=== PATIENT | female | born 1950 | race Caucasian/White ===

== ENCOUNTER 2016-10-26 16:51 | Inpatient (IN) ==
[2016-10-26] MEDS ORDERED: NITROGLYCERIN 2% OINT 1 INCH/GM PACK TOP STA (18:05)
[2016-10-26] MEDS ORDERED: ALBUTEROL/IPRATROPIUM 3 ML NEB RESP TX STA (18:05)
[2016-10-26] MEDS ORDERED: ONDANSETRON 4 MG/2 ML VIAL IV STA (18:05)
[2016-10-26] MEDS ORDERED: methylPREDNISolone SOD SUC 125 MG/2 ML VIAL IV STA (18:05)
[2016-10-26] MEDS ORDERED: MORPHINE 2 MG/1 ML SYRINGE IV STA (18:05)
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
[2016-10-26 18:41] LABS: ABG Base Excess -0.6 MMOL/L (-2.5-2.5); ABG HCO3 23.9 MMOL/L (20-26); ABG Oxygen Saturation 97.6 % (95-100); ABG PH 7.397 (7.35-7.45); ABG TCO2 20.4 MMOL/L (23-27)
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
[2016-10-26 19:05] LABS: Basophils % 0.5 % (0.0-0.8); Eosinophils # 0.2 10*3/uL (0.0-0.87); Eosinophils % 2.8 % (0.00-10.9); Hematocrit 43.4 VOL% (35.7-47.0); Hemoglobin 14.9 GM/DL (12.0-16.0); Immature Granulocytes % 0.8 %; Immature Granulocytes Absolute 0.07 #; Lymphocytes % 23.5 % (21.3-54.2); Mean Corpuscular HGB Conc 34.3 GM/DL (32-36); Mean Corpuscular Hemoglobin 30 PG (27-34); Mean Corpuscular Volume 88.2 FL (87-102); Mean Platelet Volume 10.3 FL (9.6-12.0); Monocytes # 0.6 10*3/uL (0.11-0.8); Monocytes % 7.1 % (1.7-12.7); Neutrophils # 5.4 10*3/uL (1.4-7.4); Neutrophils % 65.3 % (38.7-73.9); Platelet Count 162 T/CUMM (130-400); Red Blood Count 4.92 MC/CUMM (3.8-5.5); Red Cell Distribution Width 13.2 % (9.3-17.3); White Blood Count 8.3 T/CUMM (4-12)
--- NOTE | 2016-10-26 19:05 | EKG Report ---
Stationary ECG Study [facility] ER Test Date: 10/26/2016 7:03:56 PM Pat Name: VARSHA CARLTON Department: Room: Gender: F Technology Lab Teacher: : 1950 Requested by: Sreekanth Fajardo Order Number: [id number] Reading MD: SINA FELIX Intervals [place] Rate: 92 P: 20 OH: 157 QRS: -16 QRSD: 92 T: 68 QT: 372 QTc: 422 Interpretive Statements SINUS RHYTHM NONSPECIFIC T-WAVE ABNORMALITY Electronically Signed On 10-30-16 16:13:29 CDT by SINA FELIX [email or web address]
--- NOTE | 2016-10-26 19:12 | XRay Report ---
Referring Physician: Sreekanth Mcfarland Exam: XR chest 1V portable Date: October 26, 2016 at 6:21 PM Reason: Shortness of breath Comparison: Chest 1 view October 26, 2016 at 10:53 AM Findings: The cardiac silhouette is upper normal in size, and there may be venous congestion. No focal consolidation, pneumothorax or pleural effusion is identified. No acute osseous process is seen. Impression: 1. Borderline cardiomegaly and possible venous congestion. 2. No acute pulmonary process is identified. PROCEDURE INTERPRETED AT [facility] DEPARTMENT OF RADIOLOGY Final Report Signed by: Dr. Yoselyn Philippe
[2016-10-26 19:16] LABS: INR 1.1; PT Patient Result 11.3 SECS
[2016-10-26 19:33] LABS: Albumin 3.6 G/DL (3.4-5.0); Apearance,Urine CLEAR (Clear); Bilirubin,Total 0.7 MG/DL (0.2-1.0); Bilirubin,Urine Negative (Negative); Blood, Urine Negative (Negative); Calcium 9.4 MG/DL (8.5-10.1); Glucose,Urine (UA) 50 mg/dL (Negative); Ketones,Urine 5 mg/dL (Negative); Mucus,Urine Occasional /LPF (Occasional); Nitrite,Urine Negative (Negative); Osmolality,Calculated 283.5 MOS/KG (273-304); Potassium 3.8 MMOL/L (3.5-5.1); Protein,Urine Negative; RBC,Urine 2 /HPF (0-4); Total Protein 7.1 G/DL (6.4-8.3); Troponin I Only 0.029 NG/ML (0.00-0.045); Urine Color Yellow (Yellow); Urine Specific Gravity > 1.060 (1.001-1.035); Urine Urobilinogen < 2.0 EU/DL (0.2-1.0); WBC,Urine 1 /HPF (0-6)
[2016-10-26] MEDS ORDERED: MORPHINE 2 MG/1 ML SYRINGE ONE (19:36)
[2016-10-26] MEDS ORDERED: methylPREDNISolone SOD SUC 125 MG/2 ML VIAL ONE (19:36)
[2016-10-26] MEDS ORDERED: ONDANSETRON 4 MG/2 ML VIAL ONE (19:36)
[2016-10-26] MEDS ORDERED: NITROGLYCERIN 2% OINT 1 INCH/GM PACK TOP ONE (19:36)
--- NOTE | 2016-10-26 20:11 | Ultrasound Report ---
Referring physician: Arvind Garcia Exam: Bilateral lower extremity venous ultrasound Date: October 26, 2016 Comparison: Left lower extremity venous ultrasound September 22, 2015 Reason: DVT history, shortness of breath and pulmonary embolism Technique: Duplex scan of the bilateral lower extremity veins was performed using B-Mode/grayscale imaging, compression, Doppler spectral analysis and color flow. Ultrasound images were captured and stored. Findings: There is no evidence of thrombus within the bilateral common femoral veins, bilateral saphenous veins, bilateral superficial femoral veins or right popliteal vein. However, there is echogenic thrombus within the left popliteal vein. This likely represents chronic thrombus, especially since there was thrombus in this region on the previous ultrasound. Impression: 1. There is no evidence of deep venous thrombosis within the right lower extremity. 2. There is echogenic thrombus within the left popliteal vein. This likely represents chronic thrombus, especially since there was thrombus in this region on the previous study. Findings were discussed with the patient's nurse in the Emergency Department on October 26, 2016 at 8:05 PM. PROCEDURE INTERPRETED AT [facility] DEPARTMENT OF RADIOLOGY Final Report Signed by: Dr. Yoselyn Philippe
[2016-10-26] MEDS ORDERED: ESMOLOL 2,500 MG/250 ML PREMIX IV ONE (20:15)
[2016-10-26] MEDS ORDERED: DOCUSATE SODIUM 100 MG CAPSULE PO PRN (21:50)
[2016-10-26] MEDS ORDERED: GLUCAGON 1 MG VIAL IM PRN ×2 (21:50)
[2016-10-26] MEDS ORDERED: DEXTROSE 50% 25 GM/50 ML VIAL IV PRN ×2 (21:50)
[2016-10-26] MEDS: INSULIN REGULAR 100 UNIT/ML SUBCUT SCH (22:41)
[2016-10-27 00:17] LABS: Troponin I Only 0.031 NG/ML (0.00-0.045)
[2016-10-27] MEDS ORDERED: ENOXAPARIN 150 MG/ML SYRINGE SUBCUT SCH (02:30)
[2016-10-27 05:02] LABS: Basophils % 0.3 % (0.0-0.8); Eosinophils % 0.1 % (0.00-10.9); Hematocrit 42.1 VOL% (35.7-47.0); Hemoglobin 14.4 GM/DL (12.0-16.0); Immature Granulocytes % 1.1 %; Immature Granulocytes Absolute 0.08 #; Lymphocytes # 0.6 10*3/uL (1.4-4.0); Lymphocytes % 7.8 % (21.3-54.2); Mean Corpuscular HGB Conc 34.2 GM/DL (32-36); Mean Corpuscular Hemoglobin 30 PG (27-34); Mean Corpuscular Volume 87.5 FL (87-102); Mean Platelet Volume 10.9 FL (9.6-12.0); Monocytes # 0.1 10*3/uL (0.11-0.8); Neutrophils # 6.4 10*3/uL (1.4-7.4); Neutrophils % 89.7 % (38.7-73.9); Platelet Count 177 T/CUMM (130-400); Red Blood Count 4.81 MC/CUMM (3.8-5.5); White Blood Count 7.2 T/CUMM (4-12)
[2016-10-27 05:18] LABS: INR 1.1; PT Patient Result 11.4 SECS
[2016-10-27 05:30] LABS: Calcium 8.7 MG/DL (8.5-10.1); Osmolality,Calculated 291.8 MOS/KG (273-304); Potassium 4.5 MMOL/L (3.5-5.1)
[2016-10-27 05:33] LABS: Troponin I Only 0.029 NG/ML (0.00-0.045)
[2016-10-27 05:54] LABS: Magnesium 2.1 MG/DL (1.8-2.4); Risk Ratio 6.55; Thyroid Stimulating Hormone 0.996 uIU/ml (0.358-3.74); VLDL CHOLESTEROL 45.6 MG/DL
[2016-10-27] MEDS: ONDANSETRON 4 MG/2 ML VIAL IV PRN ×2 (07:50→18:06)
[2016-10-27] MEDS ORDERED: ONDANSETRON 4 MG/2 ML VIAL ONE (07:50)
[2016-10-27] MEDS: INSULIN REGULAR 100 UNIT/ML SUBCUT SCH ×4 (08:18→20:45)
[2016-10-27] MEDS: PANTOPRAZOLE 40 MG TABLET PO SCH (08:20)
--- NOTE | 2016-10-27 11:02 | Hospitalist Progress Note ---
Assessment and Plan - Time spent with patient Time spent with patient: Greater than 30 minutes (1) Pulmonary embolism, bilateral Status: Acute Assessment and plan: This is a second recurrence. Patient should be anticoagulated with Eliquis lifelong. Pulmonary consult reviewed. Consider IVC filter. Current Visit: Yes (2) Left leg DVT Status: Chronic Assessment and plan: Considering IVC filter given recurrence of PE. Current Visit: Yes Qualifiers: Affected thrombotic vein of extremity: popliteal Chronicity: chronic Qualified Code(s): I82.532 - Chronic embolism and thrombosis of left popliteal vein (3) Hypertension Status: Chronic Current Visit: Yes Qualifiers: Hypertension type: essential hypertension Qualified Code(s): I10 - Essential (primary) hypertension (4) Type 2 diabetes mellitus Status: Chronic Current Visit: Yes Qualifiers: Diabetes mellitus complication status: without complication Hospitalist: Subjective Interval history: Patient seen and examined. No acute events overnight. Case discussed with nursing staff. Labs reviewed. History and physical reviewed. Case discussed with Dr. Khan Patient with recurrent pulmonary emboli and chronic DVT in the left lower extremity. Has been on Eliquis in the past for previous pulmonary emboli 1 year ago. She feels better today and her oxygen saturation has improved. She is able to speak in full sentences. Exam - Constitutional Vitals: Period Temp Pulse Resp BP Sys/Odom Pulse Ox Last 24 Hr 97.3 F-98.3 F 81-103 18-35 107-169/54-94 91-100 Exam: Constitutional System: Mild distress. No tremulousness. Head: Normocephalic, atraumatic. Ears, Nose and Throat System: No pain or tenderness. No epistaxis or discharge Eyes System: Pupils equal, round, and reactive. Extraocular muscles intact. Neck: Supple, without adenopathy, No jugular venous distention. No thyromegaly, neck mass, or prior surgery apparent. Respiratory System: Chest clear to auscultation. Cardiovascular System: Heart with regular rate and rhythm. No murmur. GI System: Abdomen soft, nontender. Normo active bowel sounds present. Musculoskeletal System: limbs with no pedal edema. Full distal pulses. Neurological System: No discernable sensory deficit. No aphasia Psychiatric System: Conversation is rational Results - Labs CBC & BMP: 10/27/16 04:26 10/27/16 04:26 Lab Results: I have reviewed the past 24 hour labs - Diagnostic Findings Procedure: Ultrasound: report reviewed by me
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
[2016-10-27] MEDS: ALPRAZolam 0.25 MG TABLET PO PRN (13:13)
[2016-10-27] MEDS: APIXABAN 5 MG TABLET PO SCH ×2 (14:52→20:46)
[2016-10-27] MEDS: glipiZIDE 10 MG TABLET PO SCH (18:23)
--- NOTE | 2016-10-27 18:31 | ECHO Report ---
Abi Ortiz Exam Date: 10/27/2016 12:06 Referring Physician: Technologist: Richa Adams Age: 66 Ht (in): 64 Wt (lb): 291 Gender: F Exam Location: [facility] Echo Indications: Bilateral Pul embolism, morbid obesity, hypoxia, CHF, DVT, edema BP: 143 / 85 HR: 95 Rhythm: Sinus Technical Quality: Technically difficult study IMPRESSIONS 1. Technically difficult limited study. 2. Left ventricle normal size and systolic function ejection fraction 55%. There is mild concentric left ventricular hypertrophy with grade 1 diastolic dysfunction. 3. Mildly dilated left atrium. 4. Sclerotic mitral valve with regurgitation. 5. Sclerotic aortic valve without Doppler abnormalities. 6. Right-sided chambers are unremarkable. 7. No evidence of elevated right-sided pressures. MEASUREMENTS (Male / Female) Normal Values 2D ECHO LV Diastolic Diameter PLAX 5.0 cm 4.2 - 5.9 / 3.9 - 5.3 cm LV Systolic Diameter PLAX 3.5 cm LV Fractional Shortening PLAX 29.4 % IVS Diastolic Thickness 1.5 cm 0.6 - 1.0 / 0.6 - 0.9 cm LVPW Diastolic Thickness 1.0 cm 0.6 - 1.0 / 0.6 - 0.9 cm RV Internal Dim ED PLAX 2.8 cm Aortic Root Diameter 2.7 cm LA Systolic Diameter LX 4.1 cm 3.0 - 4.0 / 2.7 - 3.8 cm DOPPLER TR Peak Velocity 144.0 cm/s TR Peak Gradient 8.3 mmHg FINDINGS Left Ventricle Left ventricle is normal size with normal systolic function and around 55%. There is mild concentric left ventricular hypertrophy with grade 1 diastolic dysfunction. Right Ventricle Normal right ventricular size. Right Atrium Normal right atrial size. Left Atrium Mildly increased left atrial diameter. Mitral Valve Mildly thickened mitral valve with trace mitral regurgitation. Aortic Valve Aortic valve is a tricuspid structure with sclerosis without stenosis or regurgitation. Tricuspid Valve Morphologically normal tricuspid valve. Trace tricuspid valve regurgitation. Pulmonic Valve Pulmonic valve not well visualized. Trace pulmonary valve regurgitation. Pericardium No pericardial effusion. Aorta Normal size aortic root and proximal ascending aorta. Arvind Guthrie MD (Electronically Signed) Final Date: 27 Oct 2016 18:16
[2016-10-27] MEDS ORDERED: APIXABAN 5 MG TABLET PO SCH (21:00)
[2016-10-27] MEDS: ACETAMINOPHEN 325 MG TABLET PO PRN (23:39)
[2016-10-28 08:15] LABS: Basophils % 0.2 % (0.0-0.8); Eosinophils % 0.4 % (0.00-10.9); Hematocrit 41.7 VOL% (35.7-47.0); Hemoglobin 14.2 GM/DL (12.0-16.0); Immature Granulocytes % 0.7 %; Immature Granulocytes Absolute 0.07 #; Lymphocytes # 1.7 10*3/uL (1.4-4.0); Lymphocytes % 17.6 % (21.3-54.2); Mean Corpuscular HGB Conc 34.1 GM/DL (32-36); Mean Corpuscular Hemoglobin 30 PG (27-34); Mean Platelet Volume 10.5 FL (9.6-12.0); Monocytes # 0.7 10*3/uL (0.11-0.8); Neutrophils # 7.1 10*3/uL (1.4-7.4); Neutrophils % 74.1 % (38.7-73.9); Platelet Count 178 T/CUMM (130-400); Red Blood Count 4.74 MC/CUMM (3.8-5.5); Red Cell Distribution Width 13.1 % (9.3-17.3); White Blood Count 9.6 T/CUMM (4-12)
[2016-10-28 08:36] LABS: Calcium 8.6 MG/DL (8.5-10.1); Osmolality,Calculated 292.3 MOS/KG (273-304); Potassium 4.1 MMOL/L (3.5-5.1)
[2016-10-28] MEDS: INSULIN REGULAR 100 UNIT/ML SUBCUT SCH ×4 (08:55→21:26)
[2016-10-28] MEDS: APIXABAN 5 MG TABLET PO SCH ×2 (08:55→21:25)
[2016-10-28] MEDS: glipiZIDE 10 MG TABLET PO SCH ×2 (08:55→16:26)
[2016-10-28] MEDS: PANTOPRAZOLE 40 MG TABLET PO SCH (08:55)
--- NOTE | 2016-10-28 10:42 | Hospitalist Progress Note ---
Assessment and Plan (1) Dysphagia Status: Acute Assessment and plan: Patient will be seen by speech therapy. Advised on consistency of food and a mechanism of swallowing. Patient may need retraining. Current Visit: Yes (2) Pulmonary embolism, bilateral Status: Acute Assessment and plan: Patient is on Eliquis which continues to be on tolerating medication well. Oxygenation is normal blood pressures normal will be transferred to a monitored bed now. Current Visit: Yes (3) Type 2 diabetes mellitus Status: Chronic Current Visit: Yes Qualifiers: Diabetes mellitus complication status: without complication (4) Hypoxia Status: Acute Assessment and plan: Resolved Current Visit: No Hospitalist: Subjective Interval history: Patient has been seen interviewed and examined and chart has been reviewed. 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 Was started on apixaban yesterday 5 mg p.o. twice daily. She is doing well today oxygenation is optimal. She is complaining of having problems swallowing especially dry toast is quite abraded. She tends to cough a few examine her neck I suspect some of her neurologic problems is a recurrent laryngeal nerve entrapment or otherwise. Her voice is slightly raspy. She needs speech therapy evaluation. Exam - Constitutional Vitals: Period Temp Pulse Resp BP Sys/Odom Pulse Ox Last 24 Hr 97.4 F-98.4 F 71-109 11-63 100-157/46-87 94-100 General appearance: over weight - Head Head exam: Present: normocephalic, atraumatic - Eye Eye exam: Present: EOMI Pupils: Present: CHERYL - ENT ENT exam: Present: normal oropharynx, other (Noted a raspy voice and complaining no problems swallowing white bread.) - Neck Neck exam: Present: other (Neck is supple midline trachea no adenopathy or tumefaction and neck) - Respiratory Respiratory exam: Present: clear to auscultation bilaterally, other (No wheezing no rales no rhonchi) - Cardiovascular Cardiovascular exam: Present: regular rate and rhythm - GI/Abdominal GI/Abdominal exam: Present: normal bowel sounds, soft - Extremities Exam Extremities exam: Present: full ROM - Back Exam Back exam: Present: normal inspection - Neurological Exam Neurological exam: Present: alert, oriented X3, CN II-XII intact - Psychiatric Psychiatric exam: Present: normal affect, normal mood - Skin Skin exam: Present: normal color, warm, dry Results - Labs CBC & BMP: 10/28/16 07:54 10/28/16 07:54 Lab Results: I have reviewed the past 24 hour labs
--- NOTE | 2016-10-28 11:05 | Pulmonology Progress Note ---
Pulmonary - PN: Subj Interval history: 66-year-old female admitted for her second episode of acute PE. Patient has done well on Eliquis without any evidence of bleeding. She remains very anxious today and has many questions. Her main new complaint today is of dysphasia, for which she is going to be seen by speech therapy per IM. Exam (Progress Note) - Constitutional Vitals: Period Temp Pulse Resp BP Sys/Odom Pulse Ox Last 24 Hr 97.4 F-98.4 F 71-109 11-63 100-157/46-87 94-100 General appearance: over weight - Head Head exam: Present: normal inspection - Eye Eye exam: Present: EOMI Pupils: Present: CHERYL - Neck Neck exam: Present: normal inspection - Respiratory Respiratory exam: Present: clear to auscultation bilaterally - Cardiovascular Cardiovascular exam: Present: regular rate and rhythm - GI/Abdominal GI/Abdominal exam: Present: normal bowel sounds, soft - Extremities Exam Extremities exam: Present: normal inspection - Neurological Exam Neurological exam: Present: alert, oriented X3 - Skin Skin exam: Present: normal color, warm, dry Results - Labs CBC & BMP: 10/28/16 07:54 10/28/16 07:54 Assessment and Plan (1) Pulmonary embolism Status: Acute Assessment and plan: Second episode of VTE, indicating patient is now indicated for lifelong anticoagulation. She is tolerating Eliquis well without issues. Continue current management and monitor for signs of bleeding. Echo performed yesterday showed no clear evidence of pulmonary hypertension or right heart strain. Agree with stability for transfer out of ICU to telemetry unit. I will follow patient peripherally tomorrow and Dr. Khan will return on Sunday. Please call with any clinical changes or further questions in the interim. Current Visit: Yes (2) Dysphagia Status: Acute Assessment and plan: Agree with speech therapy consultation and adjusting consistency of food. Current Visit: Yes
[2016-10-28] MEDS: ALPRAZolam 0.25 MG TABLET PO PRN (17:51)
[2016-10-29] MEDS: INSULIN REGULAR 100 UNIT/ML SUBCUT SCH ×4 (09:04→20:45)
[2016-10-29] MEDS: glipiZIDE 10 MG TABLET PO SCH ×2 (09:05→16:39)
[2016-10-29] MEDS: ALPRAZolam 0.25 MG TABLET PO PRN (09:05)
[2016-10-29] MEDS: PANTOPRAZOLE 40 MG TABLET PO SCH (09:05)
[2016-10-29] MEDS: APIXABAN 5 MG TABLET PO SCH ×2 (09:05→20:45)
--- NOTE | 2016-10-29 12:08 | Hospitalist Progress Note ---
Assessment and Plan (1) Dysphagia Status: Acute Assessment and plan: Patient will be seen by speech therapy. Advised on consistency of food and a mechanism of swallowing. Patient may need retraining. Current Visit: Yes (2) Pulmonary embolism, bilateral Status: Acute Assessment and plan: Patient is on Eliquis which continues to be on tolerating medication well. Oxygenation is normal blood pressures normal will be transferred to a monitored bed now. Current Visit: Yes (3) Type 2 diabetes mellitus Status: Chronic Assessment and plan: Continue current medications. Maintain blood sugars below 125. 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 Admitted to the hospital On 26 October with chest tightness shortness of breath hypoxia patient was found to have bilateral pulmonary emboli; which is a recurrent event. She is doing well on oral anticoagulation with Eliquis. No another thing that stands out as she has problems swallowing and order speech evaluation which can only be done tomorrow. Speech eval is normal or they have completed recommendation this patient will be discharged assuming that May to be able to pick her up tomorrow. Exam - Constitutional Vitals: Period Temp Pulse Resp BP Sys/Odom Pulse Ox Last 24 Hr 97 F-98.4 F 75-83 16-20 108-153/55-68 90-98 - Head Head exam: Present: normocephalic, atraumatic - Eye Eye exam: Present: EOMI Pupils: Present: CHERYL - ENT ENT exam: Present: normal exam - Neck Neck exam: Present: normal inspection - Respiratory Respiratory exam: Present: clear to auscultation bilaterally - Cardiovascular Cardiovascular exam: Present: regular rate and rhythm - GI/Abdominal GI/Abdominal exam: Present: normal bowel sounds, soft - Extremities Exam Extremities exam: Present: full ROM - Back Exam Back exam: Present: normal inspection - Neurological Exam Neurological exam: Present: alert, oriented X3, CN II-XII intact - Psychiatric Psychiatric exam: Present: normal affect, normal mood - Skin Skin exam: Present: normal color, warm, dry Results - Labs CBC & BMP: 10/28/16 07:54 10/28/16 07:54 Lab Results: I have reviewed the past 24 hour labs
[2016-10-29] MEDS: ACETAMINOPHEN 325 MG TABLET PO PRN (20:44)
[2016-10-30] MEDS: glipiZIDE 10 MG TABLET PO SCH (08:09)
[2016-10-30] MEDS: INSULIN REGULAR 100 UNIT/ML SUBCUT SCH ×2 (08:09→11:49)
[2016-10-30] MEDS: PANTOPRAZOLE 40 MG TABLET PO SCH (08:58)
[2016-10-30] MEDS: APIXABAN 5 MG TABLET PO SCH (08:58)
[2016-10-30 11:46] VITALS: BP 136/65
--- NOTE | 2016-10-30 12:10 | Discharge Summary ---
Hospital Course - Hospital Course Hospital Course: Patient was admitted to the hospital on 10/26/2016 with a respiratory distress syndrome and congestive heart failure but found to have bilateral pleural pulmonary embolism. He has been on Eliquis and doing well. The day before yesterday transferred to the telemetry floor which is done well. Patient is also complaining of some disc bulging especially when eating white bread. She may have some mechanical problems swallowing mechanism. We tried to get to speech therapy when she was he unfortunately she cannot be seen in time. She can be arranged to be seen as an outpatient. We are arranging that at discharge. She has been discharged home today with no complaints. Patient is eager to leave the hospital to follow-up with her primary care physician in 1 week. Diagnosis - Discharge Diagnosis (1) Dysphagia Status: Acute (2) Pulmonary embolism, bilateral Status: Acute (3) Type 2 diabetes mellitus Status: Chronic (4) Hypoxia Status: Acute Specialty Discharge - Follow Up or Referrals Follow up with: Troy Tobias MD [Physician] - 12/04/16 9:00 am Discharge Plan - Discharge Data Disposition: Disch To Home/Self Care Condition at Discharge: Stable Discharge Diet: advance to your usual diet Activity: resume usual activities as tolerated Hygiene: no restrictions Weight Bearing at Discharge: weight bear as tolerated Driving: no restrictions Contact your physician if you experience:: fever over 101, Nausea/Vomiting, Shortness of breath, pain uncontrolled by pain medications - Discharge Medications New Apixaban [Eliquis] 5 mg PO BID #60 tablet Docusate Sodium Cap [Colace Cap] 100 mg PO BID PRN #60 capsule PRN Reason: Constipation Pantoprazole Tab [Protonix Tab] 40 mg PO DAILY #30 tablet Continue Lisinopril/Hydrochlorothiazide [Lisinopril-Hctz 10-12.5 mg Tab] 1 each PO QAM glipiZIDE [Glucotrol] 10 mg PO BIDAC Metformin HCl 1,000 mg PO BID HYDROcodone/ACETAMIN 7.5-325 [[place] 7.5-325] 1 tablet PO Q4H PRN #30 tablet PRN Reason: Pain Moderate (4-7) ALPRAZolam [Alprazolam] 0.125 mg PO Q12H PRN PRN Reason: Anxiety Furosemide Tab [Lasix Tab] 40 mg PO BID DIURETIC PRN PRN Reason: Edema - Follow Up or Referral Follow Up: Troy Tobias MD [Physician] - 12/04/16 9:00 am - Forms/Instructions Exam - Constitutional Vitals: Period Temp Pulse Resp BP Sys/Odom Pulse Ox Last 24 Hr 96.6 F-98.9 F 68-84 16-22 122-162/60-90 90-98 General appearance: morbidly obese - Head Head exam: Present: normocephalic, atraumatic - Eye Eye exam: Present: EOMI Pupils: Present: CHERYL - ENT ENT exam: Present: normal exam - Respiratory Respiratory exam: Present: clear to auscultation bilaterally - Cardiovascular Cardiovascular exam: Present: regular rate and rhythm - GI/Abdominal GI/Abdominal exam: Present: normal bowel sounds, soft - Extremities Exam Extremities exam: Present: full ROM - Neurological Exam Neurological exam: Present: alert, oriented X3, CN II-XII intact - Psychiatric Psychiatric exam: Present: normal affect, normal mood - Skin Skin exam: Present: normal color, warm, dry Discharge Results Procedures and tests throughout hospitalization: Pending Orders 10/31/16 04:00 Basic Metabolic Panel IN AM CBC [Comp Blood Count Auto Diff] IN AM Labs on day of discharge: Labs from last 24 hours 10/30/16 10/30/16 10/29/16 11:20 07:47 20:39 POC Glucose 217 H 205 H 223 H 10/29/16 16:20 POC Glucose 208 H Preliminary micro results at discharge 10/26/16 18:52 Blood Culture - Preliminary Blood No growth at 3 days 10/26/16 18:52 Blood Culture - Preliminary Blood No growth at 3 days DS: Provider Date of admission: 10/26/16 18:08 Primary care physician: . No PCP Attending physician on admission: Arvind Garcia MD Consults: 10/27/16 09:59 Consult to Physician [CONS] Routine Comment: recurrent Pulmonary emboli Consulting Provider: Davis Khan 10/28/16 10:44 Consult to Speech Therapy [CONS] Routine Reason for Speech Therapy: Evaluate and Treat Consult Comment: Choking on some solid foods especially white bread Discharging clinician: Lester Ruiz MD
--- NOTE | 2016-10-30 12:22 | Pulmonology Progress Note ---
Pulmonary - PN: Subj Interval history: Ang Ferrer, ANP-BC, GNP-BC, acting as scribe for Dr. Davis Khan Ms. Ortiz is a 66-year-old white female who we saw in initial pulmonary consultation on 10/27/2016. At that time, our impressions were: 1. Abnormal left lower extremity vein almost certainly the site of pulmonary emboli on at least 2 separate occasions. 2. Acute pulmonary saddle embolus with a past history of acute pulmonary embolus 3. Insulin-dependent diabetes mellitus 4. Morbid obesity 5. History of heart disease 6. See past history 10/30/2016. The patient has now been moved to telemetry floor. We again discussed the importance of lifelong anticoagulation. She is agreeable and appears to understand the rationale for this. She is a retired nurse. She is presently on Eliquis and states that she was on this before and had no problems. From a pulmonary standpoint the patient does well. She states that overall she feels markedly improved since admission with significantly short last shortness of breath. Medications have been reviewed. We made no changes today. Labs have been reviewed. No new labs were drawn today. Blood cultures are negative at day 3. MRSA screen of the nares was negative. Exam (Progress Note) - Constitutional Vitals: Period Temp Pulse Resp BP Sys/Odom Pulse Ox Last 24 Hr 96.6 F-98.9 F 68-84 16-22 122-162/60-90 90-98 Exam: Chest is clear Heart no gallop Abdomen is obese, but nontender and nondistended; bowel sounds are positive 4 Extremities with nothing to suggest an acute deep venous thrombophlebitis Psychiatric oriented 3 Neurologic long-term motor function is intact Plan: This patient will need lifelong anticoagulation as discussed with her on multiple occasions. She understands. Continue present treatment. Results - Labs CBC & BMP: 10/28/16 07:54 10/28/16 07:54
[2016-10-30] MEDS: ALPRAZolam 0.25 MG TABLET PO PRN (14:42)
[2016-10-30 14:56] LABS: Apearance,Urine Slightly Hazy (Clear); Bacteria,Urine Occasional /HPF (Few); Bilirubin,Urine Negative (Negative); Blood, Urine Moderate mg/dL (Negative); Glucose,Urine (UA) >=500 mg/dL (Negative); Ketones,Urine Negative (Negative); Nitrite,Urine Negative (Negative); Protein,Urine Negative; RBC,Urine 83 /HPF (0-4); Squamous Epithelial Cell,Urine Occasional /HPF (0-10); Urine Color Yellow (Yellow); Urine Specific Gravity 1.015 (1.001-1.035); Urine Urobilinogen < 2.0 EU/DL (0.2-1.0); WBC,Urine 9 /HPF (0-6)
== END 2016-10-30 15:25 | disposition home or self-care (01) | DRG 176 ==
LOC: EDUNIT# → EDBD → N.ED 16:51 → SUATTDRO 18:08 → N.EDINP 18:08 → N.ICU 22:27 → N.TELES 10-28 12:12
PROVIDERS: ADMIT Internal Medicine; ATTEND Internal Medicine Infectious Disease